=== PATIENT | female | born 1970 | race Hispanic/Latino ===

== ENCOUNTER 2018-01-26 20:13 | Emergency (ER) | payer MEDICAID, OTHER ==
[2018-01-26 20:18] VITALS: BP 149/87; PULSE 90; RESP 17; TEMP 99.2; O2SAT 96
[2018-01-26] MEDS ORDERED: Amoxicillin-Clav 875-125 mg Tab PO STA (20:39)
[2018-01-26] MEDS ORDERED: TDAP Vaccine 0.5 mL Syr IM ONE (20:39)
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
--- NOTE | 2018-01-27 09:25 | RAD ---
PROCEDURE: Right Hand Radiographs. HISTORY: fracture COMPARISON: None. FINDINGS: BONES: Transverse fracture distal 5th metacarpal diaphysis. Mild radial/palmar angulation. No other fracture. JOINTS: Normal. No osteoarthritic changes. SOFT TISSUES: Normal. OTHER FINDINGS: None. IMPRESSION: Distal 5th metacarpal diaphysis fracture.
== END 2018-01-26 22:20 | disposition left against medical advice (07) ==
LOC: ED 20:13
DX: S62.396A Other fracture of fifth metacarpal bone, right hand, initial encounter for closed fracture (principal); Y08.89XA Assault by other specified means, initial encounter; Y92.9 Unspecified place or not applicable; Z23 Encounter for immunization